=== PATIENT | female | born 1985 | race Caucasian/White ===

== ENCOUNTER 2018-10-16 10:04 | Outpatient (CLI) | payer BC ==
--- NOTE | 2018-10-16 11:09 | ULT ---
PELVIC ULTRASOUND: INDICATIONS: Pelvic pain. Heavy menses. TECHNIQUE: Transabdominal and endovaginal ultrasound of the pelvis performed. FINDINGS: The uterus is retroflexed. The endometrial stripe is upper normal, measured at 8 to 10 mm. Both ovaries are identified. Normal appearing follicles. Color Doppler with spectral analysis demon strates blood flow to both ovaries. No significant free fluid. IMPRESSION: Retroflexed uterus. Endometrial stripe is upper normal. POS: [facility]
== END 2018-10-16 10:05 | disposition home or self-care (01) ==
LOC: MADULT 10:04
PROVIDERS: ATTEND Family Medicine
DX: N92.0 Excessive and frequent menstruation with regular cycle (principal); N85.4 Malposition of uterus
CPT/HCPCS: 76856